=== PATIENT | female | born 1985 | race Caucasian/White ===

== ENCOUNTER 2016-12-23 00:33 | Emergency (ER) | payer SELFPAY ==
[~2016-12-23] VITALS: Ht 157.5 cm; Wt 87.4 kg
[~2016-12-23 00:33] MED LIST: PREN0.01 PO; PYRI200T4 PO
[2016-12-23 00:45] VITALS: BP 122/67; PULSE 80; RESP 12; TEMP 98.3; O2SAT 95
== END 2016-12-23 07:14 | disposition left against medical advice (07) ==
LOC: PHED 00:33
DX: Z53.9 Procedure and treatment not carried out, unspecified reason (principal)
CPT/HCPCS: 99281